=== PATIENT | female | born 1950 | race Caucasian/White ===

== ENCOUNTER 2024-03-17 18:28 | Emergency (ER) | payer OTHER ==
--- NOTE | 2024-03-17 21:25 | RAD REPORT ---
EXAMINATION: ONE VIEW CHEST XR CLINICAL INDICATION: Female, 73 years old.,CHEST PAIN TECHNIQUE: Frontal chest projection is submitted. Examination is limited by patient positioning and t echnique. COMPARISON: No prior exam. FINDINGS: The lungs are well inflated and clear. No pneumothorax or sizable effusion. The heart is normal in s ize. Mediastinal contours are unremarkable. IMPRESSION: No acute intrathoracic abnormalities.
[2024-03-17 22:26] LABS: Absolute Basophils 0.1 K/uL (0-0.5); Absolute Lymphocytes (CBC) 1.5 K/uL (0.7-4.9); Absolute Monocytes 0.3 K/uL (0.1-1.3); Absolute Neutrophil 4.3 K/uL (1.8-8.0); Basophils % 0.8 % (0-1.3); Eosinophils % 0.3 % (0-4.4); Hemoglobin 13.4 g/dL (12.0-15.0); Lymphocytes % 23.7 % (15.3-44.8); MCH 31.5 pg (27.0-35.0); MCHC 33.4 g/dL (32.0-36.0); MCV 94.2 fL (80-100); MPV 8.8 fL (7.6-11.3); Monocytes % 5.4 % (3.3-12.3); Neutrophils % 69.8 % (41.7-73.7); Platelets 190 thou/uL (152-406); RBC Red Blood Cell Count 4.25 M/uL (3.86-4.86); Red Cell Distribution Width 13.1 % (12.1-15.2)
[2024-03-17 22:29] LABS: PT Prothrombin Time 12.2 SECONDS (9.4-12.5); Protime INR 1.09
[2024-03-17] MEDS ORDERED: METOPROLOL TAR 25 MG TAB ONE (22:51)
[2024-03-17 22:53] LABS: ALT/SGPT 22 U/L (13-56); Albumin 3.9 g/dL (3.4-5.0); Alkaline Phosphatase 87 U/L (45-117); Anion Gap 7.4 mEq/L (5.0-15.0); BUN Blood Urea Nitrogen 8 mg/dL (7-18); Bicarbonate 27 mEq/L (21-32); Bilirubin Total 0.5 mg/dL (0.2-1.0); Globulin 3.8 g/dL (2.3-3.5); Glomerular Filtration Rate 92 ml/min (=/>90); Glucose Level 98 mg/dL (74-106); NT PRO-BNP 123 pg/mL (<125); Protein, Total 7.7 g/dL (6.4-8.2); Sodium Level 141 mEq/L (136-145)
[2024-03-17 22:55] LABS: AST/SGOT 22 U/L (15-37); Bilirubin Direct < 0.2 mg/dL (0-0.2); Bilirubin Indirect, Calculated 0.3 mg/dL (0.2-0.8); Magnesium 2.2 mg/dL (1.6-2.4); Potassium 3.4 mEq/L (3.5-5.1)
[2024-03-17 23:57] LABS: Renal Epithelial <5 /HPF (None Seen); Specific Gravity 1.005 (1.005-1.030); Sqamous Epithelial <5 /HPF (None Seen); Urine Bacteria None Seen /HPF (<20); Urine Bilirubin NEGATIVE (Negative); Urine Blood Negative (Negative); Urine Clarity Clear (Clear); Urine Color Colorless (Yellow); Urine Culture Reflex Order NOT NEEDED; Urine Glucose NEGATIVE (Negative); Urine Ketones TRACE (Negative); Urine Micro Reflex YN NO BILL MICROSCOPIC; Urine Nitrite NEGATIVE (Negative); Urine Protein NEGATIVE (Negative); Urine RBC <5 /HPF (None Seen); Urine Urobilinogen Normal (Normal); Urine WBC <5 /HPF (<5)
--- NOTE | 2024-03-18 00:12 | EDPHYS ---
Physician Documentation [facility] Name: Vivienne Schulz Age: 73 yrs Sex: Female : 1950 Arrival Date: 03/17/2024 Time: 18:28 Bed 18 Private MD: ED Physician Morgan Rutherford HPI: 03/17 23:39 This 73 yrs old Female presents to ER via Ambulatory with complaints of High Blood sb4 Pressure, high heart rate. 23:39 Patient states that she noticed today that she was feeling "off" almost like she was sb4 coming down with an illness. She states that she checked her blood pressure and noted it to be elevated and that her heart rate was also elevated. She states that she took a nap and checked it right after and it was still elevated so she came to the ED for further evaluation. She denies any cardiac history, hypertension diagnoses, is not on any daily medications. Denies any chest pain, shortness of breath, dizziness. Historical: - Allergies: 19:15 No Known Allergies; bm8 - Home Meds: 19:15 None [Active]; bm8 - PMHx: 19:15 None; bm8 - PSHx: 19:15 None; bm8 - Immunization history:: Adult Immunizations up to date. - Infectious Disease History:: Denies. - Social history:: Smoking status: Patient denies any tobacco usage or history of. Patient/guardian denies using alcohol, street drugs. ROS: 23:39 Constitutional: Negative for fever, chills, and weight loss, sb4 23:39 Cardiovascular: Positive for per HPI, 23:39 All other systems are negative, Exam: 23:42 Constitutional: This is a well developed, well nourished patient who is awake, alert, sb4 and in no acute distress. Head/Face: Normocephalic, atraumatic. Eyes: Extra-ocular motions intact. Periorbital areas with no swelling, redness, or edema. ENT: Mucous membranes moist. Cardiovascular: Regular rate and rhythm with a normal S1 and S2. Respiratory: No increased work of breathing, no retractions or nasal flaring. Abdomen/GI: Soft, non-tender, no distension. Skin: Warm, dry with normal turgor. Normal color with no rashes, no lesions, and no evidence of cellulitis. Vital Signs: 19:13 BP 175 / 97; Pulse 107; Resp 18; Temp 97.8; Pulse Ox 96% ; Weight 63.5 kg; Height 5 ft. bm8 4 in. ; Pain 0/10; 19:13 BP 152 / 97; Pulse 106; Resp 18; Temp 97.8; Pulse Ox 98% ; Pain 0/10; bm8 21:45 BP 150 / 102; Pulse 100; Resp 18; Temp 98; Pulse Ox 100% on R/A; Pain 0/10; rg5 22:30 BP 147 / 79; Pulse 102; Resp 18; Pulse Ox 100% on R/A; Pain 0/10; rg5 23:15 BP 133 / 67; Pulse 87; Resp 18; Pulse Ox 100% on R/A; Pain 0/10; rg5 23:20 BP 147 / 81 Supine; Pulse 82; Pulse Ox 99% on R/A; rg5 23:25 BP 136 / 90 Sitting; Pulse 94; Pulse Ox 99% ; rg5 23:29 BP 138 / 86 Standing; Pulse 104; Pulse Ox 100% on R/A; rg5 03/18 00:00 BP 123 / 90; Pulse 77; Resp 16; Pulse Ox 99% on R/A; Pain 0/10; rg5 03/17 19:13 Body Mass Index 24.03 (63.50 kg, 162.56 cm) bm8 03/17 19:13 Pain Scale: Adult bm8 19:13 Pain Scale: Adult bm8 21:45 Pain Scale: Adult rg5 22:30 Pain Scale: Adult rg5 23:15 Pain Scale: Adult rg5 03/18 00:00 Pain Scale: Adult rg5 MDM: 03/17 19:06 Medical Screening Exam initiated sb4 23:35 Data reviewed: vital signs, nurses notes, lab test result(s), EKG, radiologic studies, sb4 and as a result, I will discharge patient. Consideration of Admission/Observation Escalation of care including admission/observation considered. 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 03/17 19:17 Order name: Basic Metabolic Panel; Complete Time: 23:35 sb4 03/17 19:17 Order name: CBC with Diff; Complete Time: 22:31 sb4 03/17 19:17 Order name: LFT's; Complete Time: 23:35 sb4 03/17 19:17 Order name: Magnesium; Complete Time: 23:35 sb4 03/17 19:17 Order name: NT PRO-BNP; Complete Time: 23:35 sb4 03/17 19:17 Order name: PT-INR; Complete Time: 22:31 sb4 03/17 19:17 Order name: Troponin HS; Complete Time: 23:35 sb4 03/17 22:57 Order name: UAM; Complete Time: 23:57 sb4 03/17 22:57 Order name: Add On-Lab sb4 03/17 22:59 Order name: Thyroid Stimulating Hormone; Complete Time: 23:35 EDMS 03/17 23:23 Order name: T4 Free; Complete Time: 23:35 EDMS 03/17 19:17 Order name: XRAY Chest (1 view); Complete Time: 21:26 sb4 03/17 19:17 Order name: Cardiac monitoring; Complete Time: 22:14 sb4 03/17 19:17 Order name: EKG - Nurse/Tech; Complete Time: 19:26 sb4 03/17 19:17 Order name: IV Saline Lock; Complete Time: 22:15 sb4 03/17 19:17 Order name: Labs collected and sent; Complete Time: 22:15 sb4 03/17 19:17 Order name: O2 Per Protocol; Complete Time: 22:15 sb4 03/17 19:17 Order name: O2 Sat Monitoring; Complete Time: 22:15 sb4 03/17 22:57 Order name: Orthostatics; Complete Time: 23:28 sb4 EC:18 Rate is 106 beats/min. Rhythm is regular, Sinus tachycardia. Left axis deviation noted. sb4 [place] interval is normal at 118 msec. QRS interval is normal at 92 msec. QT interval is normal at 336 msec. No Q waves. T waves are Normal. No ST changes noted. Clinical impression: Sinus tachycardia. Interpreted by me. Reviewed by me. Administered Medications: 22:52 Drug: Metoprolol PO 25 mg PO once Route: PO; rg5 23:28 Follow up: Response: No adverse reaction; Blood pressure is lowered rg5 Disposition Summary: 03/18/24 00:11 Discharge Ordered Notes: Location: Home sb4 Problem: new sb4 Symptoms: have improved sb4 Condition: Stable sb4 Diagnosis - Elevated blood-pressure reading, without diagnosis of hypertension sb4 - Tachycardia, unspecified sb4 Followup: sb4 - With: Sandeep Gann MD - When: 1 week - Reason: Further diagnostic work-up, Recheck today's complaints, Re-evaluation by your physician Discharge Instructions: - Discharge Summary Sheet sb4 - Hypertension, Adult, [id number] sb4 - Sinus Tachycardia sb4 - Form - Blood Pressure Record Sheet sb4 Forms: - Patient Portal Instructions sb4 - Leadership Thank You Letter sb4 Prescriptions: - Metoprolol Tartrate 50 mg Oral tablet - take 1 tablet ORAL route 2 times per day take with meal; 30 tablet; Refills: 0, sb4 Product Selection Permitted Signatures: Dispatcher [employer] EDMS Yakelin Ortiz PA-C PA-C sb4 Sterling Yun, RN RN bm8 Flo Warren, RN RN rg5 Corrections: (The following items were deleted from the chart) 19:18 19:18 BASIC METABOLIC PANEL+C.LAB.BRZ ordered. EDMS EDMS 19:18 19:18 CBC+H.LAB.BRZ ordered. EDMS EDMS 19:18 19:18 HEPATIC FUNCTION+C.LAB.BRZ ordered. EDMS EDMS 19:18 19:18 MAGNESIUM+C.LAB.BRZ ordered. EDMS EDMS 19:18 19:18 PROBNP+C.LAB.BRZ ordered. EDMS EDMS 19:18 19:18 PROTIME (+INR)+COAG.LAB.BRZ ordered. EDMS EDMS 19:18 19:18 Troponin High Sensitivity+C.LAB.BRZ ordered. EDMS EDMS 19:18 19:18 Chest Single View+RAD.RAD.BRZ ordered. EDMS EDMS
--- NOTE | 2024-03-18 00:12 | ER ---
Nurse's Notes [facility] Name: Vivienne Schulz Age: 73 yrs Sex: Female : 1950 Arrival Date: 03/17/2024 Time: 18:28 Bed 18 Private MD: Diagnosis: Elevated blood-pressure reading, without diagnosis of hypertension;Tachycardia, unspecified Presentation: 03/17 19:13 Chief complaint: Patient states: i have high blood pressure and it feels like my heart bm8 is going to fast, my watch said it was 126 at one point. also my right ear feels like i have been on a plane and I havent. Coronavirus screen: Vaccine status: Patient reports receiving the 2nd dose of the covid vaccine. Ebola Screen: Patient negative for fever greater than or equal to 101.5 degrees Fahrenheit, and additional compatible Ebola Virus Disease symptoms Patient denies exposure to infectious person. Patient denies travel to an Ebola-affected area in the 21 days before illness onset. No symptoms or risks identified at this time. Initial Sepsis Screen: Does the patient meet any 2 criteria? No. Patient's initial sepsis screen is negative. Does the patient have a suspected source of infection? No. Patient's initial sepsis screen is negative. Risk Assessment: Do you want to hurt yourself or someone else? Patient reports no desire to harm self or others. Onset of symptoms was March 17, 2024 at 08:00. 19:13 Method Of Arrival: Ambulatory bm8 19:13 Acuity: LAUREN 3 bm8 Triage Assessment: 19:15 General: Appears in no apparent distress. comfortable, Behavior is calm, cooperative, bm8 appropriate for age. Pain: Denies pain. EENT: Reports right ear clogged. Neuro: No deficits noted. Level of Consciousness is awake, alert, obeys commands, Oriented to person, place, time, situation, Appropriate for age. Cardiovascular: Reports palpitations, Heart tones S1 S2 present Capillary refill < 3 seconds in bilateral fingers Patient's skin is warm and dry. Respiratory: No deficits noted. Airway is patent Trachea midline Respiratory effort is even, unlabored, Respiratory pattern is regular, symmetrical, Breath sounds are clear bilaterally. GI: No signs and/or symptoms were reported involving the gastrointestinal system. : No signs and/or symptoms were reported regarding the genitourinary system. Derm: No signs and/or symptoms reported regarding the dermatologic system. Musculoskeletal: No signs and/or symptoms reported regarding the musculoskeletal system. Historical: - Allergies: 19:15 No Known Allergies; bm8 - Home Meds: 19:15 None [Active]; bm8 - PMHx: 19:15 None; bm8 - PSHx: 19:15 None; bm8 - Immunization history:: Adult Immunizations up to date. - Infectious Disease History:: Denies. - Social history:: Smoking status: Patient denies any tobacco usage or history of. Patient/guardian denies using alcohol, street drugs. Screenin:[address] [facility] ED Fall Risk Assessment (Adult) History of falling in the last 3 months, rg5 including since admission No falls in past 3 months (0 pts) Confusion or Disorientation No (0 pts) Intoxicated or Sedated No (0 pts) Impaired Gait No (0 pts) Mobility Assist Device Used No (0 pt) Altered Elimination No (0 pt) Score/Fall Risk Level 0 - 2 = Low Risk Oriented to surroundings, Maintained a safe environment, Hourly rounding (assess needs \T\ fall precautionary measures) done. Abuse screen: Denies threats or abuse. Nutritional screening: No deficits noted. Tuberculosis screening: No symptoms or risk factors identified. Assessment: 21:50 General: Appears in no apparent distress. Behavior is calm, appropriate for age. Pain: rg5 Denies pain. Neuro: Level of Consciousness is awake, alert, obeys commands. Cardiovascular: Patient's skin is warm and dry. Respiratory: Airway is patent Trachea midline. GI: Abdomen is round non-distended. : No signs and/or symptoms were reported regarding the genitourinary system. EENT: No deficits noted. Derm: Skin is intact, Skin is dry, Skin is normal. Musculoskeletal: Circulation, motion, and sensation intact. Range of motion: intact in all extremities. 22:30 Reassessment: Patient and/or family updated on plan of care and expected duration. Pain rg5 level reassessed. Patient is alert, oriented x 3, equal unlabored respirations, skin warm/dry/pink. 23:30 Reassessment: Patient and/or family updated on plan of care and expected duration. Pain rg5 level reassessed. Patient is alert, oriented x 3, equal unlabored respirations, skin warm/dry/pink. Patient states symptoms have improved. 03/18 00:00 Reassessment: Patient and/or family updated on plan of care and expected duration. Pain rg5 level reassessed. Patient is alert, oriented x 3, equal unlabored respirations, skin warm/dry/pink. Patient states feeling better. Vital Signs: 03/17 19:13 BP 175 / 97; Pulse 107; Resp 18; Temp 97.8; Pulse Ox 96% ; Weight 63.5 kg; Height 5 ft. bm8 4 in. ; Pain 0/10; 19:13 BP 152 / 97; Pulse 106; Resp 18; Temp 97.8; Pulse Ox 98% ; Pain 0/10; bm8 21:45 BP 150 / 102; Pulse 100; Resp 18; Temp 98; Pulse Ox 100% on R/A; Pain 0/10; rg5 22:30 BP 147 / 79; Pulse 102; Resp 18; Pulse Ox 100% on R/A; Pain 0/10; rg5 23:15 BP 133 / 67; Pulse 87; Resp 18; Pulse Ox 100% on R/A; Pain 0/10; rg5 23:20 BP 147 / 81 Supine; Pulse 82; Pulse Ox 99% on R/A; rg5 23:25 BP 136 / 90 Sitting; Pulse 94; Pulse Ox 99% ; rg5 23:29 BP 138 / 86 Standing; Pulse 104; Pulse Ox 100% on R/A; rg5 03/18 00:00 BP 123 / 90; Pulse 77; Resp 16; Pulse Ox 99% on R/A; Pain 0/10; rg5 03/17 19:13 Body Mass Index 24.03 (63.50 kg, 162.56 cm) bm8 03/17 19:13 Pain Scale: Adult bm8 19:13 Pain Scale: Adult bm8 21:45 Pain Scale: Adult rg5 22:30 Pain Scale: Adult rg5 23:15 Pain Scale: Adult rg5 03/18 00:00 Pain Scale: Adult rg5 ED Course: 03/17 18:35 Patient arrived in ED. im 18:37 Yakelin Ortiz [facility]. sb4 18:37 Morgan Rutherford MD is Attending Physician. sb4 19:15 Triage completed. bm8 19:15 Arm band placed on right wrist. bm8 19:26 EKG done, by ED staff, reviewed by Yakelin Ortiz PA-C. bm8 20:45 XRAY Chest (1 view) In Process Unspecified. EDMS 21:50 Patient has correct armband on for positive identification. Placed in gown. Bed in low rg5 position. Call light in reach. Provided Education on: POST ER CARE. 21:50 No provider procedures requiring assistance completed. Inserted saline lock: 20 gauge rg5 in right antecubital area, using aseptic technique. Blood collected. Flushed with 10 mL NS. 21:59 Flo Warren, RN is Primary Nurse. rg5 23:22 Add On-Lab Sent. rg5 03/18 00:11 Sandeep Gann MD is Referral Physician. sb4 00:39 IV discontinued, bleeding controlled, No redness/swelling at site. Pressure dressing rg5 applied. Administered Medications: 03/17 22:52 Drug: Metoprolol PO 25 mg PO once Route: PO; rg5 23:28 Follow up: Response: No adverse reaction; Blood pressure is lowered rg5 Medication: 21:50 VIS not applicable for this client. rg5 Outcome: 03/18 00:11 Discharge ordered by . sb4 00:38 Discharged to home ambulatory, rg5 00:38 Condition: stable 00:38 Discharge instructions given to patient, Instructed on discharge instructions, follow up and referral plans. Demonstrated understanding of instructions, follow-up care, medications, Prescriptions given X 1, 00:39 Patient left the ED. rg5 Signatures: Dispatcher [employer] [facility] Yakelin Ortiz PA-C PA-C sb4 Lisa Bradley Brad RN RN bm8 Flo Warren, RN RN rg5
[2024-03-18 01:07] VITALS: TEMP 98
[2024-03-18 01:14] VITALS: BP 123/90; O2SAT 99
--- NOTE | 2024-03-18 08:51 | EKG ---
Test Date: 2024-03-17 Test Time: 19:11:27 Research Worker Encyclopedia: [employer] MEASUREMENT RESULTS: Intervals: Rate: 106 AR: 118 QRSD: 92 QT: 336 QTc: 446 [place]: P: 69 AR: 118 QRS: -48 T: 66 INTERPRETIVE STATEMENTS: Sinus tachycardia Left axis deviation Abnormal ECG No previous ECG available for comparison Electronically Signed On 03-18-24 08:49:52 SHIPPING MANAGER by Maximo Castro
== END 2024-03-18 00:39 | disposition home or self-care (01) ==
LOC: ER 18:28
DX: R03.0 Elevated blood-pressure reading, without diagnosis of hypertension (principal); R00.0 Tachycardia, unspecified
CPT/HCPCS: 36415; 71045; 80048; 80076; 81001; 83735; 83880; 84439; 84443; 84484; 85025; 85610; 93005